=== PATIENT | male | born 1975 | race Caucasian/White ===

== ENCOUNTER 2018-07-13 22:14 | Emergency (ER) | payer SELFPAY ==
[~2018-07-13] VITALS: Ht 180.3 cm; Wt 95.3 kg
[2018-07-13] MEDS ORDERED: LIDOCAINE /MPF 1% VIAL 5 ML VIAL ONE ×2 (22:37→23:00)
--- NOTE | 2018-07-13 22:46 | NUR ---
I & D SET UP IN THE ROOM. Honey MACKAY, PAC NOTIFIED.
[2018-07-13] MEDS ORDERED: CEPHALEXIN MONOHYDRATE 500 MG CAPSULE PO ONE ×2 (23:00→23:01)
[2018-07-13] MEDS ORDERED: LIDOCAINE HCL/PF 1% 30 ML VIAL TP ONE (23:00)
--- NOTE | 2018-07-13 23:20 | NUR ---
Scotty MACKAY PA-C IS A THE BEDSIDE FOR I&D.
[2018-07-13] MEDS ORDERED: IBUPROFEN 600 MG TABLET PO ONE (23:23)
[2018-07-13] MEDS ORDERED: LIDOCAINE 2% 20 ML MDV TP ONE (23:30)
[2018-07-13] MEDS ORDERED: LIDOCAINE 2% 20 ML MDV ONE (23:34)
--- NOTE | 2018-07-13 23:35 | NUR ---
Scotty MACKAY PA-C IS AT THE BEDSIDE FOR DIGITAL BLOCK.
--- NOTE | 2018-07-13 23:35 | NUR ---
PT IS UNABLE TO TAKE THE PAIN. NEW ORDERS GIVEN.
[2018-07-14] MEDS ORDERED: IBUPROFEN 600 MG TABLET PO ONE
[2018-07-14 00:07] VITALS: BP 123/81
--- NOTE | 2018-07-14 00:08 | NUR ---
FINGER WRAPPED WITH NON ADHERENT DRSG AND KERLEX. Patient discharged to home in stable condition. Written and verbal after care instructions given. Patient verbalizes understanding of instruction AND RX. PT AMBULATED OUT WITH A STEADY GAIT. VSS.
== END 2018-07-14 00:08 | disposition home or self-care (01) ==
LOC: ER 22:17
DX: L03.011 Cellulitis of right finger (principal)
CPT/HCPCS: 10060; 99283; A6402; J3490 ×4

== ENCOUNTER 2023-02-09 14:34 | Emergency (ER) | payer MEDICAID ==
[~2023-02-09] VITALS: Ht 180.3 cm; Wt 115.7 kg
[2023-02-09 15:25] LABS: BASOPHILS % (AUTO) 0.5 % (0.0-2.0); EOSINOPHILS # (AUTO) 0.1 K/uL (0.0-0.7); EOSINOPHILS % (AUTO) 1.8 % (0.0-6.0); HEMATOCRIT 50 % (39-51); HEMOGLOBIN 16.5 g/dL (13.5-17.5); LYMPHOCYTES # (AUTO) 2.2 K/uL (0.8-4.8); LYMPHOCYTES % (AUTO) 30.7 % (20.0-44.0); MEAN CORPUSCULAR HEMOGLOBIN 29 PG (26.0-33.0); MEAN CORPUSCULAR HGB CONC 33 g/dl (31.0-36.0); MEAN CORPUSCULAR VOLUME 89 fL (80-96); MONOCYTES # (AUTO) 0.3 K/uL (0.1-1.30); MONOCYTES % (AUTO) 4.7 % (2.0-12.0); NEUTROPHILS # (AUTO) 4.5 K/uL (1.8-8.9); NEUTROPHILS % (AUTO) 62.3 % (43.0-81.0); PLATELET COUNT (AUTO) 345 K/uL (150-450); RED BLOOD CELL COUNT(AUTO) 5.63 MIL/uL (4.5-6.0); RED CELL DISTRIBUTION WIDTH 14.4 % (11.5-15.0); WHITE BLOOD COUNT (AUTO) 7.3 K/uL (4.3-11.0)
[2023-02-09] MEDS ORDERED: IOHEXOL-350 100 ML VIAL IV ONE (15:31)
[2023-02-09] MEDS ORDERED: IV NS 0.9% 250 ML IV ONE (15:31)
[2023-02-09] MEDS ORDERED: CT SWABBABLE VALVE TRANS SET 1 EA INFUS.SET MC ONE (15:31)
[2023-02-09 16:56] LABS: CALCIUM, SERUM 9.6 mg/dL (8.5-10.1); CREATININE 1.6 mg/dL (0.6-1.3); POTASSIUM 3.9 mmol/L (3.5-5.1)
[2023-02-09 17:37] LABS: TOTAL PROTEIN, SERUM 8.6 g/dL (6.4-8.2)
[2023-02-09 18:25] VITALS: BP 114/78; TEMP 98.2; O2SAT 97
== END 2023-02-09 18:25 | disposition home or self-care (01) ==
LOC: ER 14:41
DX: R07.89 Other chest pain (principal)
CPT/HCPCS: 99285; 71275; 71045; 93005; 85025; 80048; 80076; 36415; 84484; 83880; J7050; Q9967